=== PATIENT | female | born 1970 | race Caucasian/White ===

== ENCOUNTER → 2016-10-28 | Outpatient (CLI) | payer BC ==
--- NOTE | 2016-10-29 09:41 | MAM ---
EXAM DESCRIPTION: 3D Screening BILATERAL CLINICAL HISTORY: 45 yearsFemaleSCREENING no complaints. Remote family history breast cancer; mother with ovarian cancer. Premenopausal.. COMPARISON: Baseline study at this facility. No prior reports available. TECHNIQUE: Bilateral CC and MLO projection full-field images, 3-D tomosynthesis digital mammographic technique. Also bilateral synthesized CC/ MLO full-field images. CAD not utilized. FINDINGS: The breast parenchymal density pattern is: Heterogeneously dense breast tissue, which may obscure small masses. No skin thickening or nipple retraction bilateral axillary lymph nodes. No focal, stellate mass or density, focal asymmetry , and no suspicious microcalcifications bilaterally. IMPRESSION: BI-RADS CATEGORY: 2 - BENIGN FINDINGS. FOLLOW UP: Routine digital bilateral screening, one year interval from October 2016. Written communication explaining the IMPRESSION and follow-up, will be mailed to the patient and referring health care provider. According to the [employer], yearly mammograms are recommended starting at age 40 and continuing as long as a woman is in good health. Any breast change noted on a breast self-exam should be reported promptly to the patient's healthcare provider. Breast MRI is recommended for women with an approximately 20-25% or greater lifetime risk of breast cancer, including women with a strong family history of breast or ovarian cancer and women who have been treated for Hodgkin's disease. A negative mammographic report should not delay tissue diagnosis in patients with significant clinical history or physical findings. Extremely dense breast tissue limits the sensitivity of digital mammography. Electronically signed by: Isaac Alvarez MD 10/29/2016 9:39 AM CDT
== END | disposition home or self-care (01) ==
LOC: MAMMO 14:32
PROVIDERS: ATTEND Nurse Practitioner Family
DX: Z12.31 Encounter for screening mammogram for malignant neoplasm of breast (principal)
CPT/HCPCS: 77063; G0202

== ENCOUNTER → 2018-01-02 | Outpatient (CLI) | payer BC ==
--- NOTE | 2018-01-03 09:25 | US ---
EXAM DESCRIPTION: Abdomen,Complete CLINICAL HISTORY: R10.11 COMPARISON: None Available. TECHNIQUE: Complete abdominal ultrasound FINDINGS: Visualized portions of the pancreas are unremarkable. No peripancreatic fluid. Bowel gas obscures some areas. Normal caliber of the aorta. Normal appearance of the inferior vena cava. Liver parenchyma is homogeneous in texture with normal echogenicity. No liver mass or intrahepatic bile duct dilatation. No liver surface irregularity. Normal appearance of hepatic veins and portal vein. Gallbladder appears normal with no intraluminal stones. No gallbladder wall thickening. Common bile duct is normal in caliber measuring 2.4 mm. The right kidney is measured. Single image shows the upper half of the right kidney The liver and the pelvis appears prominent. Additional imaging of the right kidney is recommended. Spleen is normal in size. No focal splenic lesion. The left kidney measures 11 cm in length. Normal renal cortical echogenicity. The renal cortical thickness appears normal. No left renal mass, shadowing stone or cyst. There is no hydronephrosis. IMPRESSION: Partial visualization of the right kidney. See above. Otherwise no diagnostic abnormality is identified on sonographic evaluation of the upper abdomen. Electronically signed by: Mukul Sanchez MD 01/03/2018 9:23 AM [facility]
== END ==
LOC: US 17:32
PROVIDERS: ATTEND Surgery
DX: R10.11 Right upper quadrant pain (principal)

== ENCOUNTER → 2018-01-03 | Outpatient (CLI) | payer BC ==
--- NOTE | 2018-01-03 18:48 | RAD ---
EXAM DESCRIPTION: Abdomen Flat Upright CLINICAL HISTORY: 47 years, Female, RUQ PAIN COMPARISON: None. FINDINGS: Nonobstructive bowel gas pattern. No abnormal calcifications. No acute osseous abnormality. IMPRESSION: No acute abnormality. Electronically signed by: Miko Tubbs MD 01/03/2018 6:47 PM [employer]
== END ==
LOC: RAD 18:20
PROVIDERS: ATTEND Surgery
DX: R10.11 Right upper quadrant pain (principal)

== ENCOUNTER → 2018-08-16 | Outpatient (CLI) | payer BC ==
--- NOTE | 2018-08-17 08:14 | RAD ---
Findings: Number of images: Two Location: Left foot No acute fracture or dislocation. No focal soft tissue abnormality. Lisfranc alignment is maintained. Plantar calcaneal enthesophyte. Bone mineralization appears normal. Joint spaces are largely maintained. IMPRESSION: No acute osseous abnormality in the left foot. Electronically signed by: Shoaib Richard MD 08/17/2018 8:12 AM CDT
== END ==
LOC: RAD 15:25
PROVIDERS: ATTEND Nurse Practitioner Family
DX: M25.572 Pain in left ankle and joints of left foot (principal)

== ENCOUNTER 2018-08-22 20:20 | Emergency (ER) | payer BC ==
[2018-08-22] MEDS ORDERED: KETOROLAC TROMETHAMINE INJ 30 MG/ML VIAL IV ONE (21:03)
[2018-08-22] MEDS ORDERED: HYDROcodone 10MG/APAP 325MG 1 EA TAB PO ONE (21:03)
[2018-08-22] MEDS ORDERED: LACTATED RINGERS 1,000 ML IVS ONE (21:03)
--- NOTE | 2018-08-22 21:03 | ED.PDOC ---
History of Present Illness - General Chief Complaint: Back Pain or Injury Stated Complaint: rt side back pain. Time Seen by Provider: 08/22/18 20:22 Source: patient Exam Limitations: no limitations - History of Present Illness Initial Comments: Codie Henry 47 y/o female came to ER with constant sharp pain since this am on her mid back radiating down to lower back;went to see chiropractor and had some manipulation done but felt not better;Had been seeing chiropractor for chronic neck pains,no bowel or bladder dysfunction;no weakness,no numbess,no tingling.Denies history of recent back injury but had history of fall several years ago sometimes has mid backache. Timing/Duration: 7-24 hours Quality/Severity: moderate, radiation, sharpness Back Pain Radiation: other - lower back Method of Injury/Prior Injury: other - NO INJURIES Improving Factors: rest Worsening Factors: movement Associated Symptoms: muscle spasms Allergies/Adverse Reactions: Allergies NO KNOWN ALLERGY Allergy (Verified 08/22/18 20:44) Home Medications: Ambulatory Orders Albuterol Sulfate [Proair Hfa] 1 puff INH Q4HR PRN 08/22/18 BuPROPion XL [Wellbutrin XL] 150 mg PO BID 08/22/18 Carisoprodol [Soma] 250 mg PO TID PRN #15 tab 08/22/18 Fluticasone Furoate-Vilanterol [Breo Ellipta 100-25 Mcg/INH] 1 puff PO DAILY 08/22/18 Montelukast [Singulair] 10 mg PO 08/22/18 Review of Systems - Review of Systems Musculoskeletal: States: see HPI, muscle stiffness All other Systems: Reviewed and Negative, No Change from Baseline Past Medical History (General) - Patient Medical History Hx Asthma: Yes Surgical History: appendectomy, other - ;BTL - Vaccination History Hx Influenza Vaccination: Yes Hx Pneumococcal Vaccination: Yes - Female History Patient is a Female of Child Bearing Age (10 -59 yrs old): Yes Hx Last Menstrual Period: 07/18/18 Patient : No Family Medical History - Family History Father Family History: Unknown Hx Family Cancer: Yes - dad-kidney;colon Physical Exam - Physical Exam General Appearance: Alert, Comfortable Eyes, Ears, Nose, Throat Exam: normal ENT inspection Neck Exam: full range of motion, normal alignment, normal inspection Cardiovascular/Respiratory: regular rate, rhythm, no M/R/G, normal peripheral pulses, normal breath sounds Peripheral Pulses: radial,right: 2+, radial,left: 2+ Gastrointestinal/Abdominal: non tender, soft Back Exam: no CVA tenderness, no vertebral tenderness, muscle spasm - right mid back;thoracolumbar junction Neurologic: no motor/sensory deficits, alert, oriented x 3 Skin Exam: normal color, warm/dry Progress - Progress Progress: 08/22/18 21:57 Vital Signs 08/22/18 08/22/18 20:38 21:30 Temperature 98.2 F Pulse Rate [ 89 89 Right] Respiratory 18 18 Rate Blood Pressure 124/94 135/91 [Right Arm] O2 Sat by Pulse 97 92 L Oximetry - Results/Orders Results/Orders: Laboratory Tests 08/22/18 08/22/18 20:47 21:15 WBC 7.2 RBC 4.68 Hgb 14.3 Hct 41.5 MCV 88.8 MCH 30.6 MCHC 34.4 RDW 14.4 Plt Count 301 MPV 7.8 Absolute Neuts (auto) 4.10 Absolute Lymphs (auto) 2.20 Absolute Monos (auto) 0.50 Absolute Eos (auto) 0.30 Absolute Basos (auto) 0.10 Neutrophils % 57.2 Lymphocytes % 30.5 Monocytes % 7.2 Eosinophils % 3.8 Basophils % 1.3 PT 9.4 INR 0.94 PTT (SP) 26.1 Sodium 136 Potassium 3.6 Chloride 104 Carbon Dioxide 23 Anion Gap 12.6 BUN 14 Creatinine 0.76 BUN/Creatinine Ratio 18.4 Random Glucose 90 Serum Osmolality 272.0 L Calcium 8.9 Magnesium 2.1 Total Bilirubin 0.3 Direct Bilirubin < 0.1 Indirect Bilirubin 0.2 AST 23 ALT 20 Alkaline Phosphatase 71 Creatine Kinase 77 CK-MB (CK-2) 1.2 Troponin I < 0.02 Serum Total Protein 7.1 Albumin 3.9 Urine Color Yellow Urine Appearance Sl cloudy Urine pH 5.5 Ur Specific [place] >= 1.030 Urine Protein Negative Urine Glucose (UA) Negative Urine Ketones Trace Urine Blood Negative Urine Nitrite Negative Urine Bilirubin Negative Urine Urobilinogen 0.2 Ur Leukocyte Esterase Negative Urine RBC 0 Urine WBC 1-3 Ur Epithelial Cells 1-3 Calcium Oxalate Crystal 3+ Urine Bacteria 0 Urine Mucus Moderate All test results discussed with patient - EKG/XRAY/CT XRAY: thoracic/Lumbar spine-degenerative changes - no acute abnormality Departure - Departure Clinical Impression: Spasm of thoracic back muscle Back ache Qualifiers: Back pain location: thoracic back pain Chronicity: unspecified Back pain laterality: right Qualified Code(s): M54.6 - Pain in thoracic spine Time of Disposition: 22:30 Disposition: Discharge to Home or Self Care Condition: Fair Departure Forms: ED Discharge - Pt. Copy, Patient Portal Self Enrollment Instructions: Muscle Spasms (DC) Referrals: [facility] SERVICE LIAISON REPRESENTATIVE [Primary Care Provider] - 1-2 Weeks Prescriptions: Carisoprodol [Soma] 250 mg PO TID PRN #15 tab PRN Reason: Muscle Spasms Home Medications: Ambulatory Orders Albuterol Sulfate [Proair Hfa] 1 puff INH Q4HR PRN 08/22/18 BuPROPion XL [Wellbutrin XL] 150 mg PO BID 08/22/18 Carisoprodol [Soma] 250 mg PO TID PRN #15 tab 08/22/18 Fluticasone Furoate-Vilanterol [Breo Ellipta 100-25 Mcg/INH] 1 puff PO DAILY 08/22/18 Montelukast [Singulair] 10 mg PO 08/22/18 Additional Instructions: Follow up with primary Md 24 August 2018 for recheck as needed
[2018-08-22] MEDS ORDERED: ORPHENADRINE CITRATE 30 MG/ML AMP IV ONE (21:33)
--- NOTE | 2018-08-22 22:18 | RAD ---
EXAM: Thoracic Spine Lateral Only CLINICAL INDICATION: 47-year-old female with pain. TECHNIQUE: Single view of the thoracic spine were obtained in lateral and swimmer's view projection. COMPARISON: None. FINDINGS: The cervical thoracic junction is not visualized secondary to overlying soft tissue and bony structures, despite swimmer's view projection. Alignment of the thoracic spine is within normal limits. There is no subluxation or fracture deformity. Morphology of the vertebral bodies and intervertebral disc spaces is within normal limits. The remainder of the visualized bones are within normal limits. IMPRESSION: No acute radiographic abnormality. Electronically signed by: Catherine Carbajal MD 08/22/2018 10:16 PM CDT
--- NOTE | 2018-08-22 22:19 | RAD ---
EXAM: Chest,1 View CLINICAL INDICATION: 47-year-old female with pain. TECHNIQUE: Single view, AP portable chest was obtained. COMPARISON: None. FINDINGS: Unremarkable cardiac and mediastinal silhouette. Heart size is normal. Elevation of the RIGHT hemidiaphragm with linear opacities suggesting subsegmental atelectasis or scarring. Lungs are otherwise clear without focal opacity, pneumothorax or pleural effusions. The visualized bones are within normal limits. IMPRESSION: No acute cardiopulmonary abnormalities. Electronically signed by: Catherine Carbajal MD 08/22/2018 10:16 PM CDT
--- NOTE | 2018-08-22 22:20 | RAD ---
EXAM: Lumbar Spine 3 Views CLINICAL INDICATION: 47-year-old female with pain. TECHNIQUE: Three views of the lumbar spine were obtained in AP, lateral, and spot projections. COMPARISON: None. FINDINGS: Alignment of the lumbar spine is within normal limits. There is no subluxation or fracture deformity. Morphology of the vertebral bodies and intervertebral disc spaces is compatible with mild multilevel degenerative change with small ventral vertebral body osteophytes. Decreased disk space of the L5-S1 level. The L5 level is poorly visualized secondary to overlying soft tissue density and bony structures. The remainder of the visualized bones are within normal limits. IMPRESSION: Degenerative change without acute radiographic abnormality. If the patient's symptoms persist, follow-up evaluation with MRI may be considered. Electronically signed by: Catherine Carbajal MD 08/22/2018 10:17 PM CDT
[2018-08-22] MEDS ORDERED: traMADol HCL 50 MG (ER DISP) # 6 TABS PO ONE (22:32)
[2018-08-22 22:42] VITALS: BP 116/71; TEMP 98.3; O2SAT 96
== END 2018-08-22 22:42 | disposition home or self-care (01) ==
LOC: ER 20:20
DX: M62.830 Muscle spasm of back (principal); M47.814 Spondylosis without myelopathy or radiculopathy, thoracic region; M47.817 Spondylosis without myelopathy or radiculopathy, lumbosacral region; J45.909 Unspecified asthma, uncomplicated; Z79.899 Other long term (current) drug therapy
CPT/HCPCS: 36415; 71045; 72020; 72100; 80048; 80076; 81001; 82550; 82553; 84484; 85025; 85610; 85730; J1885; J2360; J7120

== ENCOUNTER 2019-06-15 05:41 | Day surgery (SDC) | payer BC ==
[2019-06-15] MEDS ORDERED: LIDOCAINE 1% 10 ML VIAL INJ ONE (05:42)
[2019-06-15] MEDS ORDERED: PROPOFOL 200 MG/20 ML VIAL IV ONE (05:42)
[2019-06-15] MEDS ORDERED: LACTATED RINGERS 1,000 ML ONE (07:05)
[2019-06-15] MEDS ORDERED: KETAMINE HCL 100 MG/ML VIAL ONE (12:00)
--- NOTE | 2019-06-15 13:11 | OP ---
DATE OF PROCEDURE: 06/15/19 PREOPERATIVE DIAGNOSIS: 1. Family history. POSTOPERATIVE DIAGNOSIS: 1. Colonic polyps, 1.5 mm x2 in the rectum. PROCEDURE: 1. Colonoscopy. SURGEON: Abel Powers MD COMPLICATIONS: None. ESTIMATED BLOOD LOSS: Minimal. CONDITION: Stable. PLAN: Discharge. INDICATION: As stated. PROCEDURE: General anesthesia was induced in the lateral position. Digital rectal exam was normal. The colonoscope was introduced. Gentle lower abdominal pressure was required to get it into the cecum, but we did get it into the cecum identified by the appendiceal orifice and ileocecal valve. The ileum was not cannulated. Upon careful withdrawal and adequate prep, no significant polyps were seen but for two small ones in the rectum, one at about 15 cm and the second a little more proximal at the rectosigmoid junction. These were excised completely. Again, no other evidence of inflammation or polyps were seen. The patient tolerated the procedure and was taken to Recovery to be discharged. #[id number] MTDD
[2019-06-15 13:25] VITALS: BP 118/87; TEMP 98; O2SAT 98
== END 2019-06-15 13:20 | disposition home or self-care (01) ==
LOC: AMB 05:41
PROVIDERS: ATTEND Surgery
DX: Z12.11 Encounter for screening for malignant neoplasm of colon (principal); K63.5 Polyp of colon; K62.1 Rectal polyp; K63.89 Other specified diseases of intestine; J45.909 Unspecified asthma, uncomplicated; F90.9 Attention-deficit hyperactivity disorder, unspecified type; E66.9 Obesity, unspecified; Z79.899 Other long term (current) drug therapy; Z87.891 Personal history of nicotine dependence; Z86.14 Personal history of Methicillin resistant Staphylococcus aureus infection; Z80.0 Family history of malignant neoplasm of digestive organs
CPT/HCPCS: 00812; 45380; J3490; J7120

== ENCOUNTER → 2019-07-04 | Outpatient (CLI) | payer BC ==
--- NOTE | 2019-07-09 14:09 | US ---
EXAM DESCRIPTION: Breast,Right: Ultrasound CLINICAL HISTORY: 48 yearsFemaleLYMPH NODE enlarging lymph node compared to prior mammographic study.. No personal history of breast cancer. Remote family history of breast cancer. Menarche age 13. Childbirth age 21. Premenopausal. No HRT. Lifetime risk of developing breast cancer (Tyrer-Cuzick model)(%): 7.6. COMPARISON: Bilateral screening digital breast tomosynthesis April 11. TECHNIQUE: Transcutaneous scanning of the right breast utilizing bello-scale and Doppler modes. Scanning performed by the [address] tele[address] Dr[address] Alvarez. FINDINGS: Ultrasound: Scanning of the right axilla. Mostly fatty. Minimal fibroglandular tissues. Echogenic structure within the fat could represent a small lipoma or hemorrhage. 2.5 x 4.2 mm anechoic structure with well-defined kumar and posterior acoustic enhancement. Nonvascular. This likely a cyst. A lobulated structure with partially circumscribed and partially ill-defined margins. Hypoechoic rim and echogenic centrally. Minimal vascularity. Dimensions are 2.1 x 1.5 x 1.2 cm. Most likely a lymph node, possibly reactive. No distinct cyst. No fluid collection. No large calcifications. IMPRESSION: Right axillary lymph node, possibly reactive. BI-RADS CATEGORY: 3 - PROBABLY BENIGN. RECOMMENDATIONS: FOLLOW-UP: Short interval (6-month) diagnostic right breast digital mammography with directed right breast ultrasound. The FINDINGS and the FOLLOW-UP plan were reviewed in person with the patient after the examination. Written communication explaining the IMPRESSION and FOLLOW-UP will be mailed to the patient and referring care provider. Electronically signed by: Isaac Alvarez MD 07/09/2019 2:08 PM CDT
== END ==
LOC: MAMMO 12:04
PROVIDERS: ATTEND Nurse Practitioner Family
DX: R92.2 Inconclusive mammogram (principal)

== ENCOUNTER → 2019-07-24 | Outpatient (CLI) | payer BC ==
--- NOTE | 2019-07-24 15:13 | RAD ---
Radiograph right wrist Indication: PAIN IN LEFT WRIST Comparison: None Impression: No acute fracture or malalignment. If there is persistent anatomic snuffbox tenderness, repeat wrist imaging to include a scaphoid view is recommended in one week to evaluate for occult scaphoid fracture. No advanced osteoarthritis. Electronically signed by: Jarad Gorman MD 07/24/2019 3:11 PM CDT
== END ==
LOC: RAD 11:18
PROVIDERS: ATTEND Nurse Practitioner Family
DX: M25.532 Pain in left wrist (principal)